=== PATIENT | female | born 1940 | race Hispanic/Latino ===

== ENCOUNTER 2019-08-18 12:43 | Emergency (ER) | payer OTHER ==
[2019-08-18] MEDS ORDERED: OXYCODONE/ACETAMIN 5/325MG TAB ONE (12:56)
== END 2019-08-18 14:33 | disposition home or self-care (01) ==
LOC: EDH 12:43
DX: S43.492A Other sprain of left shoulder joint, initial encounter (principal); E78.00 Pure hypercholesterolemia, unspecified; I10 Essential (primary) hypertension; E11.9 Type 2 diabetes mellitus without complications; Z88.0 Allergy status to penicillin; Z87.891 Personal history of nicotine dependence; W18.39XA Other fall on same level, initial encounter; Y93.01 Activity, walking, marching and hiking; Y92.89 Other specified places as the place of occurrence of the external cause; Y99.8 Other external cause status
CPT/HCPCS: 73020; 73030; 93005

== ENCOUNTER 2020-05-16 13:35 | Inpatient (IN) | payer OTHER ==
[~2020-05-16] VITALS: Ht 157.5 cm; Wt 80.1 kg
[2020-05-16 14:12] LABS: BASOPHILS % (AUTO) 0.3 % (0.0-5.0); HEMATOCRIT 38.2 % (36-48); LYMPHOCYTES % (AUTO) 18.3 % (21.0-51.0); MEAN CORPUSCULAR HEMOGLOBIN 30.5 pg (27.0-33.0); MEAN CORPUSCULAR HGB CONC 34.3 g/dL (32.0-36.0); MEAN CORPUSCULAR VOLUME 88.8 fL (79-99); MONOCYTES % (AUTO) 5.6 % (3.0-13.0); NEUTROPHILS % (AUTO) 73.9 % (40.0-77.0); PLATELET COUNT (AUTO) 73 K/uL (130-400); RED CELL DISTRIBUTION WIDTH 13.4 % (11.0-15.5); WHITE BLOOD COUNT (AUTO) 14.9 K/uL (4.8-10.8)
[2020-05-16 14:34] LABS: INR 1.02 (0.85-1.15); PARTIAL THROMBOPLASTIN TIME 27.3 SEC (26.3-35.5)
[2020-05-16 14:42] LABS: B-TYPE NATRIURETIC PEPTIDE 213 pg/mL (0-100)
[2020-05-16 14:43] LABS: CREATININE 1.4 mg/dL (0.5-1.5); POTASSIUM 3.5 mmol/L (3.5-5.1)
[2020-05-16] MEDS ORDERED: ENOXAPARIN SODIUM 80 MG/0.8 ML SQ ONE (16:08)
[2020-05-16 16:39] LABS: APPEARANCE,URINE Cloudy (CLEAR); BILIRUBIN,URINE Negative (NEGATIVE); COLOR,URINE Yellow (YELLOW); GLUCOSE, URINE (UA) Negative (NEGATIVE); KETONES,URINE Trace mg/dL (NEGATIVE); LEUKOCYTE ESTERASE ,URINE Moderate (NEGATIVE); NITRATE,URINE Positive (NEGATIVE); OCCULT BLOOD,URINE Trace (NEGATIVE); PROTEIN,URINE POS 1+ mg/dL (NEGATIVE)
[2020-05-16] MEDS ORDERED: ACETAMINOPHEN 325 MG TAB PO PRN ×2 (17:00)
[2020-05-16] MEDS ORDERED: ONDANSETRON HCL 4 MG/2 ML VIAL IV PRN (17:00)
[2020-05-16] MEDS ORDERED: LACTULOSE 20 GM/30 ML UDCUP PO PRN (17:00)
[2020-05-16] MEDS ORDERED: HYDRALAZINE HCL 20 MG/ML VIAL IV PRN (17:00)
[2020-05-16] MEDS: SODIUM CHLORIDE 0.9% 1000ML 1,000 ML IV SCH (17:00)
[2020-05-16 17:27] LABS: BACTERIA,URINE Many /HPF (None Seen); MUCUS,URINE Few LPF (None Seen); SQUAMOUS EPITHELIAL CELL,UR Moderate /HPF (0-2)
[2020-05-16] MEDS: SULFAMETHOX-TMP DS 800/160 TAB PO SCH (18:00)
[2020-05-16] MEDS ORDERED: ENOXAPARIN SODIUM 80 MG/0.8 ML SQ SCH (18:00)
[2020-05-16] MEDS: INSULIN HUMULIN R 100 UNIT/ML 3ML SQ SCH (21:00)
[2020-05-16] MEDS ORDERED: SULFAMETHOX-TMP DS 800/160 TAB ONE (23:43)
[2020-05-17 04:41] LABS: BASOPHILS % (AUTO) 0.4 % (0.0-5.0); EOSINOPHILS % (AUTO) 2.4 % (0.0-8.0); HEMATOCRIT 35.8 % (36-48); LYMPHOCYTES % (AUTO) 23.1 % (21.0-51.0); MEAN CORPUSCULAR HEMOGLOBIN 30.5 pg (27.0-33.0); MEAN CORPUSCULAR HGB CONC 34.1 g/dL (32.0-36.0); MEAN CORPUSCULAR VOLUME 89.5 fL (79-99); MONOCYTES % (AUTO) 6.1 % (3.0-13.0); NEUTROPHILS % (AUTO) 67.2 % (40.0-77.0); PLATELET COUNT (AUTO) 77 K/uL (130-400); RED CELL DISTRIBUTION WIDTH 13.3 % (11.0-15.5); WHITE BLOOD COUNT (AUTO) 10.9 K/uL (4.8-10.8)
[2020-05-17 05:07] LABS: CREATININE 1.2 mg/dL (0.5-1.5); POTASSIUM 3.1 mmol/L (3.5-5.1)
[2020-05-17] MEDS ORDERED: LIDOCAINE HCL-MPF 1% 2ML VIAL IV PRN (06:15)
[2020-05-17] MEDS ORDERED: POTASSIUM CHLORIDE 10MEQ/100ML 100 ML IV PRN (06:15)
[2020-05-17] MEDS ORDERED: POTASSIUM CHLORIDE 10% ELIXIR 20 MEQ/15 ML UDCUP PO PRN (06:15)
[2020-05-17] MEDS: SODIUM CHLORIDE 0.9% 1000ML 1,000 ML IV SCH ×3 (06:20→18:57)
[2020-05-17] MEDS ORDERED: IOHEXOL 350 MG/ML 100ML INFUS..BTL IV ONE (07:15)
[2020-05-17] MEDS: INSULIN HUMULIN R 100 UNIT/ML 3ML SQ SCH ×4 (07:30→21:00)
[2020-05-17] MEDS: FAMOTIDINE 20MG TAB 20 MG TAB PO SCH (09:00)
[2020-05-17 11:00] VITALS: BP 133/52
--- NOTE | 2020-05-17 11:00 | NUR ---
ADMITTED FROM ED VIA STRETCHER ACCOMPANIED BY ED NURSE. PT. DENIES ANY CURRENT PAIN, DENIES ANY CURRENT SOB. ORIENTED TO ROOM AND SURROUNDINGS. CALL LIGHT WITHIN REACH, VERBALIZED ABILITY TO USE. BED LOW, SIDE RAILS UP X2. ROOM DOOR OPEN, VISIBLE FROM NURSE'S STATION.
[2020-05-17 11:30] VITALS: BP 112/40
[2020-05-17 15:47] VITALS: BP 127/82
[2020-05-17] MEDS ORDERED: ENOXAPARIN SODIUM 80 MG/0.8 ML SQ SCH (16:00)
--- NOTE | 2020-05-17 16:30 | NUR ---
DR. Shane ALTMAN IN ROOM FOR CONSULT, SPEAKING WITH PT.
[2020-05-17] MEDS: POTASSIUM CHLORIDE 20 MEQ ERTAB PO PRN ×3 (16:56→21:11)
[2020-05-17] MEDS: SULFAMETHOX-TMP DS 800/160 TAB PO SCH (17:01)
[2020-05-17 19:45] VITALS: BP 127/63
[2020-05-18] VITALS (7 sets, daily range): BP systolic 123–147; BP diastolic 55–83
--- NOTE | 2020-05-18 00:30 | NUR ---
BLADDER SCAN TOTAL AMOUNT 140ML, LUISITO HERNÁNDEZ NP, AWARE. NEW ORDER FOR [facility] IF PATIENT DOES NOT VOID WITHIN VOIDING PARAMETERS. PT IS AWARE.
[2020-05-18] MEDS: SODIUM CHLORIDE 0.9% 1000ML 1,000 ML IV SCH (05:09)
[2020-05-18] MEDS: INSULIN HUMULIN R 100 UNIT/ML 3ML SQ SCH ×4 (06:32→20:15)
[2020-05-18] MEDS: APIXABAN 5 MG TABLET PO SCH ×3 (06:37→20:50)
[2020-05-18] MEDS: FOLIC ACID 1 MG TABLET PO SCH (08:57)
[2020-05-18] MEDS: FAMOTIDINE 20MG TAB 20 MG TAB PO SCH (08:57)
[2020-05-18] MEDS: CYANOCOBALAMIN (VITAMIN B-12) 1,000 MCG TABLET PO SCH (08:57)
--- NOTE | 2020-05-18 10:40 | NUR ---
SS referral for: Pt. lives alone/inappropriate living conditions. SW telephoned pt's dtr. Marta Stover [phone] who reported that she resides in [place] but is here for pt's hospitalization. Dtr. reported that pt. was found by her nieces on couch in urine, feces and her pants pulled down. Dtr. is uncertain how many days pt. had been in this condition. Nieces reported to dtr. that there was also droppings perhaps from rodents. According to dtr., pt. was still driving, has a history of falls, and was ambulating with a walker. Dtr's last visit was in January when she stated that she applied with the State for provider services for pt., qualified, however, pt. refused services. Dtr. reports that pt. is a hoarder and has not allowed pt. to clean out home during her visits. Pt. does not have any home health services, no provider services and has a walker. Pt. receives 805/monthly social security benefits and 550/monthly from intermediate. Dtr. stating that she will have to return to [place] in a week. Dtr. informed that APS report would be made by this worker; dtr. voiced an understanding. Report made to APS, Reference#[id number] CM made aware. Addendum: 05/18/20 at 1713 by LUISITO ESQUEDA Amended: Links added.
--- NOTE | 2020-05-18 13:36 | NUR ---
[facility] CONSULT PATIENT ASSESSED REQUESTED: [facility] RECOMMENDATIONS SUBMITTED AND REPORT GIVEN TO PATIENT'S NURSE. Addendum: 05/18/20 at 1337 by YANNICK WILLIAM LVN Amended: Links added.
[2020-05-19 04:03] VITALS: BP 143/64
[2020-05-19] MEDS: INSULIN HUMULIN R 100 UNIT/ML 3ML SQ SCH ×4 (06:00→19:45)
[2020-05-19 07:55] VITALS: BP 138/68
[2020-05-19] MEDS: FAMOTIDINE 20MG TAB 20 MG TAB PO SCH (08:54)
[2020-05-19] MEDS: APIXABAN 5 MG TABLET PO SCH ×2 (08:54→20:30)
[2020-05-19] MEDS: LEVOFLOXACIN 500 MG TABLET PO SCH (08:54)
[2020-05-19] MEDS: FOLIC ACID 1 MG TABLET PO SCH (08:55)
[2020-05-19] MEDS: CYANOCOBALAMIN (VITAMIN B-12) 1,000 MCG TABLET PO SCH (08:55)
[2020-05-19 11:00] VITALS: BP 140/63
[2020-05-19 16:00] VITALS: BP 128/71
[2020-05-19 20:34] VITALS: BP 132/55
[2020-05-20 00:26] VITALS: BP_SYST 105; BP_SYST 109; BP_DIAS 53; BP_DIAS 75
[2020-05-20 03:49] VITALS: BP 141/61
[2020-05-20] MEDS: INSULIN HUMULIN R 100 UNIT/ML 3ML SQ SCH ×4 (07:25→20:10)
[2020-05-20 07:26] VITALS: BP 139/67
[2020-05-20] MEDS: FAMOTIDINE 20MG TAB 20 MG TAB PO SCH (08:53)
[2020-05-20] MEDS: FOLIC ACID 1 MG TABLET PO SCH (08:53)
[2020-05-20] MEDS: CYANOCOBALAMIN (VITAMIN B-12) 1,000 MCG TABLET PO SCH (08:54)
[2020-05-20] MEDS: APIXABAN 5 MG TABLET PO SCH ×2 (08:54→20:12)
[2020-05-20] MEDS: LEVOFLOXACIN 500 MG TABLET PO SCH (08:54)
[2020-05-20 10:38] VITALS: BP 129/58
[2020-05-20 16:06] VITALS: BP 139/71
[2020-05-20 20:52] VITALS: BP 153/69
--- NOTE | 2020-05-20 23:00 | NUR ---
PT IS MINIMALLY CONFUSED. ABLE TO ANSWER QUESTIONS. FORGETS SHE IS AT THE HOSPITAL. HAS RIGHT LEG SWELLING AND REDNESS+4 LEFT LEG IS SWOLLEN LEVEL 2-3.
[2020-05-21] VITALS (7 sets, daily range): BP systolic 132–151; BP diastolic 62–80
[2020-05-21] MEDS: INSULIN HUMULIN R 100 UNIT/ML 3ML SQ SCH ×4 (05:49→20:41)
[2020-05-21 06:34] LABS: BASOPHILS % (AUTO) 0.5 % (0.0-5.0); EOSINOPHILS % (AUTO) 2.8 % (0.0-8.0); HEMATOCRIT 36.8 % (36-48); LYMPHOCYTES % (AUTO) 26.7 % (21.0-51.0); MEAN CORPUSCULAR HEMOGLOBIN 30.4 pg (27.0-33.0); MEAN CORPUSCULAR HGB CONC 32.9 g/dL (32.0-36.0); MEAN CORPUSCULAR VOLUME 92.5 fL (79-99); MONOCYTES % (AUTO) 9.2 % (3.0-13.0); PLATELET COUNT (AUTO) 136 K/uL (130-400); RED BLOOD CELL COUNT(AUTO) 3.98 MIL/uL (4.00-5.50); RED CELL DISTRIBUTION WIDTH 13.6 % (11.0-15.5); WHITE BLOOD COUNT (AUTO) 7.7 K/uL (4.8-10.8)
[2020-05-21 07:00] LABS: ALBUMIN 2.7 g/dL (3.5-5.0); BILIRUBIN,TOTAL 0.6 mg/dL (0.2-1.0); CREATININE 0.8 mg/dL (0.5-1.5); TOTAL PROTEIN, SERUM 6.5 g/dL (6.0-8.3)
[2020-05-21] MEDS: FOLIC ACID 1 MG TABLET PO SCH (08:44)
[2020-05-21] MEDS: CYANOCOBALAMIN (VITAMIN B-12) 1,000 MCG TABLET PO SCH (08:44)
[2020-05-21] MEDS: FAMOTIDINE 20MG TAB 20 MG TAB PO SCH (08:44)
[2020-05-21] MEDS: APIXABAN 5 MG TABLET PO SCH ×2 (08:44→20:41)
[2020-05-21] MEDS: LEVOFLOXACIN 500 MG TABLET PO SCH (08:45)
--- NOTE | 2020-05-21 09:15 | NUR ---
Telephoned APS, case is assigned to Roman Chen [phone] and he reported that he has not made contact with pt. or daughter as of this time and will f/u with them. SW provided information.
--- NOTE | 2020-05-21 12:38 | NUR ---
cm note call made to daughter susy pérez, and states she did give consent for snf referral to [facility] as well as pt gave consent for evaluation. states that she is the only daughter to pt, and resides out of town near [place] area. also states she has also spoken to APS worker this morning and answered questions for him. this cm informed her of need for her to speak to rep Bishop from [facility] [phone] for evaluation of snf for placement. per daughter states she will call her to followup. she states she is willing to help pt after dc from snf. as long as pt agreeable as well.
[2020-05-21] MEDS: IPRATROPIUM/ALBUTEROL SULFATE 3 ML SOLUTION IH SCH ×3 (13:12→23:13)
[2020-05-22 03:30] VITALS: BP 131/66
[2020-05-22 03:56] LABS: BASOPHILS % (AUTO) 0.4 % (0.0-5.0); EOSINOPHILS % (AUTO) 2.3 % (0.0-8.0); HEMATOCRIT 35.1 % (36-48); LYMPHOCYTES % (AUTO) 24.2 % (21.0-51.0); MEAN CORPUSCULAR HEMOGLOBIN 30.1 pg (27.0-33.0); MEAN CORPUSCULAR HGB CONC 32.8 g/dL (32.0-36.0); MEAN CORPUSCULAR VOLUME 91.9 fL (79-99); MONOCYTES % (AUTO) 9.9 % (3.0-13.0); NEUTROPHILS % (AUTO) 62.2 % (40.0-77.0); PLATELET COUNT (AUTO) 130 K/uL (130-400); RED BLOOD CELL COUNT(AUTO) 3.82 MIL/uL (4.00-5.50); RED CELL DISTRIBUTION WIDTH 13.6 % (11.0-15.5); WHITE BLOOD COUNT (AUTO) 7.9 K/uL (4.8-10.8)
[2020-05-22 04:08] LABS: ALBUMIN 2.7 g/dL (3.5-5.0); BILIRUBIN,TOTAL 0.6 mg/dL (0.2-1.0); CREATININE 1.2 mg/dL (0.5-1.5); POTASSIUM 4.1 mmol/L (3.5-5.1); TOTAL PROTEIN, SERUM 6.3 g/dL (6.0-8.3)
[2020-05-22] MEDS: INSULIN HUMULIN R 100 UNIT/ML 3ML SQ SCH ×3 (06:24→16:30)
[2020-05-22] MEDS: IPRATROPIUM/ALBUTEROL SULFATE 3 ML SOLUTION IH SCH ×2 (06:52→11:15)
[2020-05-22 08:00] VITALS: BP 166/72
[2020-05-22] MEDS: APIXABAN 5 MG TABLET PO SCH (08:03)
[2020-05-22] MEDS: CYANOCOBALAMIN (VITAMIN B-12) 1,000 MCG TABLET PO SCH (08:03)
[2020-05-22] MEDS: FOLIC ACID 1 MG TABLET PO SCH (08:03)
[2020-05-22] MEDS: LEVOFLOXACIN 500 MG TABLET PO SCH (08:03)
[2020-05-22] MEDS: FAMOTIDINE 20MG TAB 20 MG TAB PO SCH (08:03)
--- NOTE | 2020-05-22 10:27 | NUR ---
RECEIVED CALL FROM PT.'S DAUGHTER, MARIANNE AYALA, QUESTIONS ANSWERED RE:PT. STATUS; VERBALIZED UNDERSTANDING.
[2020-05-22 11:00] VITALS: BP 144/73
--- NOTE | 2020-05-22 13:32 | NUR ---
CM note: [facility] pending approval CM spoke to Edna mejias/[facility], received covid reslult and transfer form. Pt pending approval at this time. EMS arranged and faxed, primary nurse to call [facility] once pt ready to DC. Primary nurse aware. CM to cont to follow up.
--- NOTE | 2020-05-22 14:13 | NUR ---
[facility] Note: [facility] CM spoke to Edna [facility], received covid transfer form and covid result. Pt has approval. EMS arranged and faxed for today, primary nurse to call [facility] once pt ready to DC. Primary nurse aware. CM to cont to follow up.
[2020-05-22 16:00] VITALS: BP 127/62
--- NOTE | 2020-05-22 16:53 | NUR ---
REPORT TO PING CELESTIN LVN AT [facility].
== END 2020-05-22 18:06 | DRG 300 ==
LOC: EDH 13:35 → EDHIP 17:20 → INTOOBSV 17:20 → OBSVTOIN 17:20 → DAHIP 05-17 11:09 → 4DH 05-20 11:14
PROVIDERS: ADMIT Hospitalist; ATTEND Hospitalist
DX: I82.413 Acute embolism and thrombosis of femoral vein, bilateral (principal); N39.0 Urinary tract infection, site not specified; E44.1 Mild protein-calorie malnutrition; N17.9 Acute kidney failure, unspecified; E78.5 Hyperlipidemia, unspecified; I12.9 Hypertensive chronic kidney disease with stage 1 through stage 4 chronic kidney disease, or unspecified chronic kidney disease; I82.432 Acute embolism and thrombosis of left popliteal vein; I82.442 Acute embolism and thrombosis of left tibial vein; E11.22 Type 2 diabetes mellitus with diabetic chronic kidney disease; Z20.828 Contact with and (suspected) exposure to other viral communicable diseases; D69.6 Thrombocytopenia, unspecified; N18.9 Chronic kidney disease, unspecified; R79.89 Other specified abnormal findings of blood chemistry; B96.1 Klebsiella pneumoniae [K. pneumoniae] as the cause of diseases classified elsewhere; Z68.32 Body mass index [BMI] 32.0-32.9, adult; Z86.718 Personal history of other venous thrombosis and embolism; Z79.01 Long term (current) use of anticoagulants; Z88.0 Allergy status to penicillin
CPT/HCPCS: 36415; 71045; 71275; 72170; 80048; 80053; 81001; 82550; 82948; 83880; 84132; 84484; 85025; 85378; 85610; 85730; 87077; 87088; 87186; 93005; 93970; 94640; 94664; 97039; A4344; G0378; J1650; J7030; Q9967; U0003